=== PATIENT | female | born 1970 | race Asian ===

== ENCOUNTER 2018-09-13 21:29 | Emergency (ER) | payer BC, OTHER ==
[2018-09-14] MEDS ORDERED: METHYLPREDNISOLONE INJ 125 MG/2 ML SDV IM ONE (00:10)
[2018-09-14] MEDS ORDERED: CETIRIZINE 10 MG TABLET PO ONE (00:10)
[2018-09-14] MEDS ORDERED: FAMOTIDINE 20 MG TABLET PO ONE (00:10)
--- NOTE | 2018-09-14 00:13 | ER Document Report ---
HPI - HPI Time Seen by Provider: 09/14/18 00:00 Pain Level: 1 Context: Patient is a 48-year-old female that comes to the emergency department for chief complaint of a rash for the past 2 and half days mainly over her arms and legs but also scattered over her abdomen and back. Rash is very itchy. She denies spreading of the rash but states she was seen by urgent care, prescribed Benadryl and topical hydrocortisone but symptoms have not resolved. She denies difficulty swallowing or breathing, swelling of the face, lips, tongue, throat. She denies any diagnosed medical problems. She denies history of the same. - REPRODUCTIVE Reproductive: DENIES: : Past Medical History - General Information source: Patient, Friend - Social History Smoking Status: Never Smoker Frequency of alcohol use: None Drug Abuse: None Lives with: Family Family History: Reviewed & Not Pertinent - Medical History Medical History: Negative Surgical Hx: Negative - Immunizations Immunizations up to date: Yes Hx Diphtheria, Pertussis, Tetanus Vaccination: Yes Vertical Provider Document - CONSTITUTIONAL General Appearance: WD/WN, No Apparent Distress - INFECTION CONTROL TRAVEL OUTSIDE OF THE [place] IN LAST 30 DAYS: No - HEENT HEENT: Atraumatic, Normal ENT Exam - Patent airway, normal tongue, normal lips, normal oropharyngeal exam, normal uvula, Normocephalic - NECK Neck: Normal Inspection - RESPIRATORY Respiratory: Breath Sounds Normal, No Respiratory Distress - CARDIOVASCULAR Cardiovascular: Regular Rate, Regular Rhythm - GI/ABDOMEN Gastrointestinal: Abdomen Soft, Abdomen Non-Tender - BACK Back: Normal Inspection - MUSCULOSKELETAL/EXTREMETIES Musculoskeletal/Extremeties: MAEW, FROM, Non-Tender - NEURO Level of Consciousness: Awake, Alert, Appropriate Motor/Sensory: No Motor Deficit, No Sensory Deficit - DERM Integumentary: Warm, Dry, Rash - Scattered urticaria mainly over the arms and legs, minimally over the abdomen and back. Otherwise normal skin exam Course - Re-evaluation Re-evalutation: Patient was scattered urticaria but no signs of anaphylaxis. Patient will be treated with steroids, antihistamines, discussed expectations, follow-up, and return precautions in detail. Patient states satisfaction and agreement. Stable at time of discharge. - Vital Signs Vital signs: Temp Pulse Resp BP Pulse Ox 98.3 F 74 14 115/77 99 09/13/18 21:33 09/13/18 21:33 09/13/18 21:33 09/13/18 21:33 09/13/18 21:33 Discharge - Discharge Clinical Impression: Urticaria Condition: Stable Disposition: HOME, SELF-CARE Additional Instructions: Your examination shows urticaria (hives). This is usually a type of allergic reaction. The exact cause is uncertain at this time. Take prednisone as prescribed, take the cetirizine and famotidine for 1 week. Follow-up with primary care for additional management. Return if you worsen including swelling of the tongue, lips, face, worsening rash, difficulty breathing, or any other concerning symptoms. Prescriptions: Cetirizine HCl [24Hour Allergy] 10 mg PO DAILY #30 tablet Famotidine [Pepcid 20 mg Tablet] 20 mg PO BID #14 tablet Prednisone [Deltasone 20 mg Tablet] 20 mg PO DAILY 21 Days #42 tablet
[2018-09-14 00:50] VITALS: BP 132/74
== END 2018-09-14 00:49 | disposition home or self-care (01) ==
LOC: ER 21:29
DX: L50.9 Urticaria, unspecified (principal)
CPT/HCPCS: 99282; 96372; J2930